=== PATIENT | female | born 1970 | race Caucasian/White ===

== ENCOUNTER 2018-04-01 07:08 | Day surgery (SDC) | payer OTHER ==
[~2018-04-01] VITALS: Ht 157.5 cm; Wt 99.8 kg
[~2018-04-01 07:08] MED LIST: CEFAZOLIN SOD 1 GM/ ISO 50 ML PREMIX IV ONE
[2018-04-01] MEDS ORDERED: NS IRRIG SOLN 1000 ML IR ONE (10:30)
[2018-04-01] MEDS ORDERED: ONDANSETRON HCL 4 MG/2 ML VIAL IVP ONE (10:30)
[2018-04-01] MEDS ORDERED: NS 1000 ML IV.SOLN IV ONE (10:30)
[2018-04-01] MEDS ORDERED: ROCURONIUM BROMIDE 10 MG/ML (ZEMURON) IV ONE (10:30)
[2018-04-01] MEDS ORDERED: fentaNYL CITRATE 250 MCG/5 ML AMP IV ONE (10:30)
[2018-04-01] MEDS ORDERED: SEVOFLURANE 15 MIN GAS INH ONE (10:30)
[2018-04-01] MEDS ORDERED: MIDAZOLAM HCL 5 MG/5 ML VIAL IVP ONE (10:30)
[2018-04-01] MEDS ORDERED: SUGAMMADEX SODIUM 200 MG/2 ML VIAL IV ONE (10:30)
[2018-04-01] MEDS ORDERED: LR 1,000 ML IV.SOLN IV ONE (10:30)
[2018-04-01] MEDS ORDERED: PROPOFOL 200MG/ 20ML VIAL (DIPRIVAN) IV ONE (10:30)
[2018-04-01] MEDS ORDERED: BUPIVACAINE /PF 0.5% 30 ML VIAL INJ ONE (10:30)
[2018-04-01] MEDS ORDERED: D5/0.45 NS 1,000 ML IV SCH (11:25)
[2018-04-01] MEDS ORDERED: HYDROmorphone 1 MG INJ. 1 MG/ML AMPUL IVP PRN (11:30)
[2018-04-01] MEDS ORDERED: HYDROcodone/ACETAMIN 5-325 MG TAB (NORCO/ VICODIN) PO PRN ×2 (11:30)
[2018-04-01] MEDS ORDERED: LR 1,000 ML IV SCH (11:34)
[2018-04-01] MEDS ORDERED: MEPERIDINE HCL/PF 50 MG/ML AMP IVP PRN ×2 (11:45)
[2018-04-01] MEDS ORDERED: METOCLOPRAMIDE HCL 10 MG/2 ML VIAL IVP PRN (11:45)
[2018-04-01] MEDS ORDERED: MEPERIDINE HCL/PF 25 MG/ML DISP.SYRIN IVP PRN (11:45)
[2018-04-01 12:56] VITALS: BP_SYST 120
== END 2018-04-01 13:55 | disposition home or self-care (01) ==
LOC: SDS 07:08 → EDSTATUS 10:00 → SDS 13:55
PROVIDERS: ATTEND Colon & Rectal Surgery
DX: D24.1 Benign neoplasm of right breast (principal); F41.9 Anxiety disorder, unspecified; I10 Essential (primary) hypertension; G57.61 Lesion of plantar nerve, right lower limb; Z90.710 Acquired absence of both cervix and uterus; E66.01 Morbid (severe) obesity due to excess calories; Z68.41 Body mass index [BMI] 40.0-44.9, adult; Z98.890 Other specified postprocedural states
CPT/HCPCS: 19281; 19301; 76098; 88307; C9399; J0690; J2250; J2405; J2704; J2765; J3010; J3490; J7030; J7120; 19081; 88305